=== PATIENT | male | born 1940 | race Caucasian/White ===

== ENCOUNTER 2019-07-31 14:28 | Inpatient (IN) | payer MEDICARE, BC ==
[~2019-07-31] VITALS: Ht 177.8 cm; Wt 69.6 kg
[2019-07-31] MEDS ORDERED: CARDIZEM 30MG T30 MG PO (15:13)
[2019-07-31] MEDS ORDERED: RT ADVAIR 128 DISKUS IH (15:13)
[2019-07-31] MEDS ORDERED: ELIQUIS 5MG PO (15:14)
[2019-07-31] MEDS ORDERED: XALATAN EYE DROPS OD (15:14)
[2019-07-31 15:49] LABS: BASO % 0.3 % (0.0-2.0); EOS # 0.2 (0.0-0.7); EOS % 1.8 % (0-4.0); GRAN # 10.2 (1.4-6.5); GRAN % 86.2 % (42.2-75.2); HEMATOCRIT 45.8 % (42.0-52.0); HEMOGLOBIN 15.4 g/dl (13.5-18.0); LYMPH # 0.8 (1.2-3.4); LYMPH % 6.4 % (20.0-51.0); MEAN CELL VOLUME 91 fl (80.0-100.0); MEAN CORPUSCULAR HEMOGLOBIN 31 pg (27.0-31.0); MEAN CORPUSCULAR HGB CONC 34 g/dl (33.0-37.0); MEAN PLATELET VOLUME 9.7 fl (7.4-10.4); MONO # 0.5 (0.1-0.6); MONO % 4.3 % (1.7-9.3); PLATELET COUNT 139 K/mm3 (130-400); RED BLOOD COUNT 5.02 M/mm3 (4.20-5.60); REDCELL DISTRIBUTION WIDTH-CV 12.9 % (11.5-14.5)
[2019-07-31 15:58] LABS: ALANINE AMINOTRANSFERASE 21 U/L (21-72); ALBUMIN 4.4 gm/dL (3.5-5.0); ALKALINE PHOSPHATASE 78 U/L (50-136); ANION GAP 7 mmol/L (7-16); AST,SGOT 27 U/L (15-37); BLOOD UREA NITROGEN 18 mg/dL (9-20); CALCIUM 9.2 mg/dL (8.4-10.2); CARBON DIOXIDE 29 mmol/L (22-30); CHLORIDE 99 mmol/L (98-107); CREATININE, serum 0.95 (0.66-1.25); GLUCOSE 125 mg/dL (74-106); POTASSIUM 4.2 mmol/L (3.4-5.0); SODIUM 135 mmol/L (137-145); TOTAL PROTEIN 7.8 gm/dL (6.4-8.2)
[2019-07-31 16:06] LABS: PRE ALBUMIN 20.6 mg/dL (17.6-36.0)
[2019-07-31 16:13] LABS: TROPONIN-I < 0.012 ng/mL (0.000-0.035)
[2019-07-31 17:34] VITALS: BP 152/85; PULSE 90; TEMP 98.3
[2019-07-31 17:45] LABS: PROTHROMBIN TIME 12.2 SECONDS (9.7-12.8)
[2019-07-31] MEDS ORDERED: ANORO IH (17:55)
[2019-07-31] MEDS ORDERED: CARDIZEM120 MG PO (17:56)
--- NOTE | 2019-07-31 18:00 | NUR ---
Patient up from ER. Alert and oriented x 3. Family at bedside. Pedal pulses intact. Right lower extremity appears shortened and externally rotated. IV fluids infusing per orders via pump. Initial and 5 page complete. States mild aching to right hip. Denies need for pain medication at this time. Consent signed. Ice to right hip. Denies further needs at this time.
[2019-07-31 19:55] VITALS: BP 162/82; PULSE 92; TEMP 98.9
--- NOTE | 2019-07-31 23:27 | NUR ---
PT c/o DYSPNEA AT BEGINNING OF SHIFT. NO N/V. PT STATED HIS PAIN IS MINIMAL AND DID NOT WANT ANY PAIN MEDS. PT'S O2 TURNED UP TO 3 liters/NC. HE STATED HE'S FELT SHORT OF BREATH SINCE HE FELL AND HURT HIMSELF. HOSPITALIST NOTIFIED. PT GIVEN NEB Tx. STARTED ON PREDNISONE. 2nd CHEST XRAY ORDERED. PULMONARY CONSULT ORDERED. PHYSICIAN DEVELOPMENT MGR FOR PULMONARY NOTIFIED BY PHONE.
[2019-07-31 23:57] VITALS: BP 171/93; PULSE 95; TEMP 98.8
[2019-08-01] VITALS (12 sets, daily range): BP systolic 130–161; BP diastolic 60–85; PULSE 72–95; TEMP 98.3–99
[2019-08-01 06:13] LABS: HEMOGLOBIN 15.3 g/dl (13.5-18.0); MEAN CELL VOLUME 90 fl (80.0-100.0); MEAN CORPUSCULAR HEMOGLOBIN 30 pg (27.0-31.0); MEAN CORPUSCULAR HGB CONC 33 g/dl (33.0-37.0); MEAN PLATELET VOLUME 10.4 fl (7.4-10.4); PLATELET COUNT 131 K/mm3 (130-400); REDCELL DISTRIBUTION WIDTH-CV 12.6 % (11.5-14.5)
--- NOTE | 2019-08-01 06:20 | NUR ---
PT STATES HE FEELS MUCH LESS DYSPNEIC. PT WAS ABLE TO SLEEP. PT DENIED NEED FOR PAIN MEDS WHEN ASKED. LUNGS STILL SOUND DIMINISHED IN BASES. NO CRACKLES OR WHEEZES AUSCULTATED.
[2019-08-01 06:26] LABS: CALCIUM 8.8 mg/dL (8.4-10.2); CREATININE, serum 0.61 (0.66-1.25); POTASSIUM 4.2 mmol/L (3.4-5.0)
[2019-08-01 09:30] LABS: BAND 3 % (0-10); EOSINOPHIL 1 % (0-4); LYMPHOCYTE 6 % (20.0-51.0); NEUTROPHILS 85 % (42.0-75.2); PLATELET ESTIMATE NORMAL (NORMAL)
[2019-08-01 11:33] LABS: ARTERIAL BLD GAS O2 SATURATION 95.7 % (92-100); ARTERIAL BLD GAS TCO2 CT 23.5; ARTERIAL BLOOD GAS BASE EXCESS -0.9 (-2-2); ARTERIAL BLOOD GAS HCO3 22.4 meq/L (22-26); ARTERIAL BLOOD GAS PCO2 33.8 mmHg (35-45); ARTERIAL BLOOD GAS pH 7.44 (7.35-7.45)
--- NOTE | 2019-08-01 20:10 | NUR ---
Pt. sitting up in bed at this time. Pt. is A&OX3, assessment complete. IV to lt. forearm patent, IV fluids infusing per orders. Dressing to rt. hip CDI. Pt. denies pain or other needs, call light within reach.
[2019-08-02 00:32] VITALS: BP 130/59; PULSE 79; TEMP 97.9
[2019-08-02 03:50] VITALS: BP 119/70; PULSE 83; TEMP 97.7
[2019-08-02 06:20] LABS: HEMATOCRIT 39.9 % (42.0-52.0); HEMOGLOBIN 13.5 g/dl (13.5-18.0)
--- NOTE | 2019-08-02 06:26 | NUR ---
Pt. slept well through the night. Pt. remains A&OX3. Dressing to rt. hip CDI. IV to lt. forearm. Pt. denies needs at this time.
[2019-08-02 06:39] LABS: CALCIUM 8.5 mg/dL (8.4-10.2); CREATININE, serum 0.64 (0.66-1.25); POTASSIUM 4.4 mmol/L (3.4-5.0)
--- NOTE | 2019-08-02 07:10 | NUR ---
Report from Jerod Solomon. [facility] social worker working with pt this am.
--- NOTE | 2019-08-02 07:24 | NUR ---
IV fluids capped. Pt resting in bed, denies pain or discomfort at this time.
[2019-08-02 07:48] VITALS: BP 149/76; PULSE 83; TEMP 98.4
--- NOTE | 2019-08-02 10:12 | NUR ---
Care resumed from Guille Solomon. Student nurse assisting with care. Will monitor.
--- NOTE | 2019-08-02 10:15 | NUR ---
REPORT TO MARY CUELLAR.
--- NOTE | 2019-08-02 10:44 | NUR ---
Removed howard, assisted patient to chair from bed. Ambulated with 2:1 staff assistance using gait belt and walker from bed to chair. Patient stated that his hip/leg was stiff, denies pain. Call light and bedside table within reach.
--- NOTE | 2019-08-02 11:03 | NUR ---
Patient alert & oriented, at bedside. Report "stiffness", denies pain. R.hip bulky dressing removed and aquacell applied, matt intact. vss on O2,tele on. denies sob. Erik hose off at this time. Dale DC per orders, pericare provided. Fresh linens. Iv to Int. Denies nausea, tolerates diet.
[2019-08-02 11:28] VITALS: BP 143/87; PULSE 97; TEMP 98.1
--- NOTE | 2019-08-02 13:32 | NUR ---
[employer] student met with the patient and Vicki, his partner to discuss a discharge plan. The patient lives in [place] with Vicki. The patient has a cane and reports independence with ADLs. The patient's PCP is Dr. Jose G Banereje with [facility]. The patient receives medications at [facility] in [place] at [place] with no difficulties. The patient does not have advanced directives in the EMR but reports they are completed and designate Vicki. Physical therapy is recommending home with outpatient physical therapy. The patient has not chosen a facility for those services. The patient is needing a walker. [employer] student presented the DME choice form and patient chose [facility]. visitor services associate to fax walker order to [facility]. visitor services associate will continue to follow to ensure safe discharge.
[2019-08-02 16:00] VITALS: BP 135/69; PULSE 93; TEMP 99.3
--- NOTE | 2019-08-02 19:35 | NUR ---
Patient sitting up in chair. he has done well today. denies need for pain medication. He has voided. aquacell dressing intact. bedside report to Lizy
[2019-08-02 20:00] VITALS: BP 133/63; PULSE 104; TEMP 98.2
--- NOTE | 2019-08-02 22:28 | NUR ---
Pt doing well. Ambulating in room and in hallway. Denies pain at this time. Is urinating but dark tea colored. Call light within reach, will continue to monitor
[2019-08-03] VITALS: BP 124/70; PULSE 90; TEMP 98.1
--- NOTE | 2019-08-03 03:48 | NUR ---
Pt doing well. Resting in bed. No complaints at this time. Call light within reach, will continue to monitor
[2019-08-03 04:00] VITALS: BP 108/60; PULSE 88; TEMP 98
--- NOTE | 2019-08-03 06:50 | NUR ---
Reported onto POLO Han.
--- NOTE | 2019-08-03 07:05 | NUR ---
Pt reported 0/10 pain and "stiffness" upon assessment. Has an INT in the left forearm, SCD's. telemetry, and uses IS. He is on 1.5L O2 by nasal cannula. VSS and only complaint is a stuffy nose. His incision on his right hip aquacell CDI. Small abrasion on his right hand wrapped in [place]an. Walked with PT at 1000.
[2019-08-03 07:11] LABS: HEMATOCRIT 38.5 % (42.0-52.0); HEMOGLOBIN 13.1 g/dl (13.5-18.0); MEAN CELL VOLUME 91 fl (80.0-100.0); MEAN CORPUSCULAR HEMOGLOBIN 31 pg (27.0-31.0); MEAN CORPUSCULAR HGB CONC 34 g/dl (33.0-37.0); MEAN PLATELET VOLUME 10.3 fl (7.4-10.4); PLATELET COUNT 140 K/mm3 (130-400); RED BLOOD COUNT 4.25 M/mm3 (4.20-5.60)
[2019-08-03 07:28] LABS: BAND 8 % (0-10); LYMPHOCYTE 5 % (20.0-51.0); METAMYELOCYTE 1 % (0-0); NEUTROPHILS 72 % (42.0-75.2); PLATELET ESTIMATE NORMAL (NORMAL)
[2019-08-03 07:29] LABS: CALCIUM 8.5 mg/dL (8.4-10.2); CREATININE, serum 0.66 (0.66-1.25); POTASSIUM 4.1 mmol/L (3.4-5.0)
[2019-08-03 07:36] VITALS: BP 150/90; PULSE 102; TEMP 98.4
--- NOTE | 2019-08-03 08:28 | NUR ---
PT RESTING IN BED, VSS, DRESSING TO RIGHT HIP CDI. PT DENIES PAIN. PLAN ON DISCHARGE TO HOME LATER TODAY,
--- NOTE | 2019-08-03 10:29 | NUR ---
LESLIE contacted and faxed the patient's walker order to Aishwarya at [facility]. Aishwarya reports that they will find someone to deliver the walker to the patient's room. LESLIE to continue to follow.
[2019-08-03 10:30] VITALS: BP 156/74; PULSE 106; TEMP 98.9
--- NOTE | 2019-08-03 10:30 | NUR ---
After walking with PT at 1000, his O2 dropped in the 70's so we put him on a simple mask at 3L and is now in the 90's and VSS.
--- NOTE | 2019-08-03 10:47 | NUR ---
PT UNABLE TO TOLERATE AMBULATION WITH O2 AN THERAPY. RETURNED TO ROOM, KOURTNEY BRIGGS NOTIFIED.
--- NOTE | 2019-08-03 11:05 | NUR ---
Reported off to POLO Han.
--- NOTE | 2019-08-03 11:45 | NUR ---
PT WOULD REQUIRE 2-3L O2.
[2019-08-03 13:07] VITALS: BP 113/67; PULSE 105; TEMP 97.6
[2019-08-03] MEDS ORDERED: PROAIR HFA0.09 MG/AC IH (15:25)
[2019-08-03] MEDS ORDERED: OSCAL 500 TAB500 MG PO (15:30)
[2019-08-03] MEDS ORDERED: DUO-KAPS1 CAP PO (15:31)
[2019-08-03] MEDS ORDERED: VITAMIN C500 MG PO (15:31)
[2019-08-03] MEDS ORDERED: PREDNISONE20 MG PO (15:31)
--- NOTE | 2019-08-03 15:48 | NUR ---
Aishwarya, at [facility], reports that they do not believe the patient's insurance will cover the FWW. LESLIE met with the patient and the patient's life partner, Vicki, to inform and to discuss other DME options. The patient had a hip fracture. The patient then chose [facility]. LESLIE contacted and faxed the FWW order to Rosario at [facility]. Maurilio at [facility] delivered the FWW to the patient's room. LESLEI then followed up on the patient's preference for outpatient PT. The patient would like to receive the outpatient PT at [facility]. LESLIE contacted Catherine at [facility] outpatient PT. Catherine reports that they like to receive the script and orders first and will then contact the patient to set up the appointment. LESLIE informed the patient and Vicki of this. They are both in agreeance to this. LESLIE faxed the patient's script and orders to Catherine at [facility] outpatient PT. The patient also qualified for continous home oxygen: 4 Liters. LESLIE presented and explained the Patient Choice Form for DME to the patient and Vicki. The patient chose [facility], which is partnered with [facility] [facility] in [place] and can deliver portable tanks to the patient. Patient Choice Form signed by the patient and he was provided a copy. LESLIE contacted and faxed the patient's oxygen order to Charis at [facility]. [employer] is to deliver the portable oxygen tanks to the patient's room. The patient and Vicki were also interested in a certification of disability for disabled parking placard and/or plate. The hospitalist completed the form and LESLIE provided the form to the patient and Vicki. The patient is to discharge back home with his life partner today, 08/03, and receive outpatient PT at [facility]. LESLIE presented and explained the IM form to the patient. The patient verbalized understanding, signed, and he was provided a copy. No additional needs at this time.
[2019-08-03 16:00] VITALS: BP 135/95; PULSE 103; TEMP 98
--- NOTE | 2019-08-03 17:25 | NUR ---
discahrge instructions provided and reviewed with pt and family. pt taken by wheel chair to front by staff.
[2019-08-04 08:29] LABS: ALPHA 1 ANTITRYPSIN TOTAL 171.8 mg/dL (())
[2019-08-06 01:24] LABS: A1 PHENOTYPE SEE PCI FOR RESULTS
== END 2019-08-03 17:57 | disposition home or self-care (01) | DRG 470 ==
LOC: COL.ER 14:28 → SURG 15:43
PROVIDERS: Emergency Medicine; Internal Medicine Critical Care Medicine; Internal Medicine Pulmonary Disease; Orthopaedic Surgery; Physician Assistant; ADMIT Student in an Organized Health Care Education/Training Program
PROC: 0SR90JA Replacement of Right Hip Joint with Synthetic Substitute, Uncemented, Open Approach (ICD-10-PCS; principal; 2019-08-01 12:00)
DX: S72.001A Fracture of unspecified part of neck of right femur, initial encounter for closed fracture (principal); J44.9 Chronic obstructive pulmonary disease, unspecified; R09.81 Nasal congestion; K76.89 Other specified diseases of liver; I48.91 Unspecified atrial fibrillation; W01.0XXA Fall on same level from slipping, tripping and stumbling without subsequent striking against object, initial encounter; Y92.511 Restaurant or cafe as the place of occurrence of the external cause; Z85.828 Personal history of other malignant neoplasm of skin; Z92.21 Personal history of antineoplastic chemotherapy; Z87.891 Personal history of nicotine dependence
CPT/HCPCS: 99222-AI; 99232-AI; A4314; A9284; C1776; J0171; J0690; J1100; J2370; J2405; J2704; J3010; J7030; J7120; J7512